=== PATIENT | male | born 1935 | race Caucasian/White ===

== ENCOUNTER 2016-07-19 14:47 | Outpatient (CLI) | payer MEDICARE, OTHER | END 2016-07-19 14:48 | disposition home or self-care (01) | DX: G47.33 Obstructive sleep apnea (adult) (pediatric) (principal) | CPT/HCPCS: 99214; G0463 ==

== ENCOUNTER 2016-07-20 14:29 | Outpatient (CLI) | payer MEDICARE, OTHER | END 2016-07-20 14:30 | disposition home or self-care (01) | DX: E03.9 Hypothyroidism, unspecified (principal) ==

== ENCOUNTER 2016-11-26 14:47 | Outpatient (CLI) | payer MEDICARE, OTHER ==
[2016-11-26 18:08] LABS: CALCIUM 9.3 mg/dL (8.5-10.3); POTASSIUM 3.9 mmol/L (3.5-5.0)
[2016-11-26 18:42] LABS: THYROID STIMULATING HORMONE 2.13 uIU/mL (0.34-5.60)
== END 2016-11-26 14:48 | disposition home or self-care (01) ==
LOC: LAB.F 14:47
PROVIDERS: ATTEND Family Medicine
DX: M12.811 Other specific arthropathies, not elsewhere classified, right shoulder (principal); E03.9 Hypothyroidism, unspecified; R03.0 Elevated blood-pressure reading, without diagnosis of hypertension
CPT/HCPCS: 36415; 80048; 84439; 84443; 84481

== ENCOUNTER 2016-12-07 14:25 | Outpatient (CLI) | payer MEDICARE, OTHER ==
--- NOTE | 2016-12-07 16:00 | MRI Report ---
EXAM: RIGHT SHOULDER MRI WITHOUT CONTRAST EXAM DATE: 12/07/2016 03:26 PM. CLINICAL HISTORY: Right shoulder arthritis for years. Prior stem cell injections. COMPARISON: X-ray 2010. TECHNIQUE: Multiplanar, multisequence T1-weighted and fluid-sensitive sequences of the shoulder witho ut contrast. Other: None. FINDINGS: Acromioclavicular Region: The acromion is type III. There is moderate acromioclavicular osteoarthriti s. Fluid in the subacromial bursa. Glenohumeral Region: There are large areas of denuded bone in the glenohumeral joint with accompanyin g osteophyte, subchondral cyst formation and subchondral edema consistent with severe osteoarthritis. There is superior subluxation of the humeral head. There is a moderate-sized joint effusion. Loose b odies are visible in the inferior aspect of the bicipital groove and the posterior capsule. There are foci of synovial thickening in the posterior capsule suggestive of synovitis. Bone Marrow: See above. Labrum: There is extensive labral fraying. Musculature/Rotator Cuff: There is moderate supraspinatus tendinosis with generalized thinning and fr aying of the entire tendon. Infraspinatus appears unremarkable. There is high-grade partial thickness tearing of the deep and superficial fibers of subscapularis with mild atrophy. Biceps Tendon: There is medial subluxation of the long head of biceps with partial thickness tearing. Other: The subcutaneous tissues are unremarkable. IMPRESSION: 1. Severe glenohumeral osteoarthritis with loose bodies. 2. Supraspinatus tendinosis with generalized thinning and fraying of the entire tendon. High-grade pa rtial thickness tear of the deep and superficial fibers of subscapularis with mild atrophy. 3. Moderate acromioclavicular osteoarthritis. Type III acromion. 4. Medial subluxation and partial thickness tearing of the long head of biceps. [facility] MUSCULOSKELETAL RADIOLOGY SECTION Referring Provider Line: [phone] SITE ID: [id number]
== END 2016-12-07 14:26 | disposition home or self-care (01) ==
LOC: DI 14:25
PROVIDERS: ATTEND Family Medicine
DX: M19.011 Primary osteoarthritis, right shoulder (principal); M24.011 Loose body in right shoulder; M75.101 Unspecified rotator cuff tear or rupture of right shoulder, not specified as traumatic; S46.111A Strain of muscle, fascia and tendon of long head of biceps, right arm, initial encounter

== ENCOUNTER 2017-02-01 11:15 | Outpatient (CLI) | payer MEDICARE, OTHER | END 2017-02-01 11:16 | disposition home or self-care (01) | LOC: SC 11:15 | PROVIDERS: ATTEND Nurse Practitioner Family | DX: G47.33 Obstructive sleep apnea (adult) (pediatric) (principal); R53.83 Other fatigue | CPT/HCPCS: 99215; G0463; 99212 ==

== ENCOUNTER 2017-04-04 14:46 | Outpatient (CLI) | payer MEDICARE, OTHER | END 2017-04-04 14:47 | disposition home or self-care (01) | LOC: SC 14:46 | PROVIDERS: ATTEND Nurse Practitioner Family | DX: G47.33 Obstructive sleep apnea (adult) (pediatric) (principal) | CPT/HCPCS: 99214; G0463; 99212 ==

== ENCOUNTER 2017-05-27 15:15 | Outpatient (CLI) | payer MEDICARE, OTHER ==
[2017-05-27 18:23] LABS: BASOPHILS % (AUTO) 0.8 %; EOSINOPHILS # (AUTO) 0.2 10^3/uL (0.0-0.7); EOSINOPHILS % (AUTO) 3.6 %; LYMPHOCYTES # (AUTO) 1.9 10^3/uL (1.5-3.5); LYMPHOCYTES % (AUTO) 37.3 %; MEAN CORPUSCULAR HEMOGLOBIN 32.7 pg (27.0-31.0); MEAN CORPUSCULAR HGB CONC 33.4 g/dL (32.0-36.0); MEAN CORPUSCULAR VOLUME 97.7 fL (80.0-94.0); MEAN PLATELET VOLUME 8.6 fL (7.4-11.4); MONOCYTES # (AUTO) 0.6 10^3/uL (0.0-1.0); NEUTROPHILS # (AUTO) 2.4 10^3/uL (1.5-6.6); NEUTROPHILS % (AUTO) 47.3 %; PLT - PLATELET COUNT 183 10^3/uL (130-450); RED BLOOD COUNT 4.28 10^6/uL (4.70-6.10); RED CELL DISTRIBUTION WIDTH 13.6 % (12.0-15.0); WHITE BLOOD COUNT 5.1 x10^3/uL (4.8-10.8)
[2017-05-27 18:40] LABS: ALBUMIN/GLOBULIN RATIO 1.5 (1.0-2.2); BILIRUBIN,TOTAL 0.6 mg/dL (0.2-1.0); CALCIUM 9.3 mg/dL (8.5-10.3); CREATININE 0.9 mg/dL (0.6-1.2); TOTAL PROTEIN 6.6 g/dL (6.7-8.2)
== END 2017-05-27 15:16 | disposition home or self-care (01) ==
LOC: LAB.F 15:15
PROVIDERS: ATTEND Physician Assistant Medical
DX: Z01.812 Encounter for preprocedural laboratory examination (principal); Z51.81 Encounter for therapeutic drug level monitoring; Z79.899 Other long term (current) drug therapy
CPT/HCPCS: 36415; 80053; 85025; 87081

== ENCOUNTER 2017-05-27 15:30 | Outpatient (CLI) | payer MEDICARE, OTHER | END 2017-05-27 15:31 | disposition home or self-care (01) | LOC: LAB.R 15:30 | PROVIDERS: ATTEND Physician Assistant Medical | DX: Z01.812 Encounter for preprocedural laboratory examination (principal) | CPT/HCPCS: 87081 ==

== ENCOUNTER 2017-05-31 14:37 | Outpatient (CLI) | payer MEDICARE, OTHER ==
--- NOTE | 2017-06-02 11:08 | XRAY Report ---
DATE OF SERVICE: 05/31/2017 TWO VIEW CHEST: 05/31/2017 COMPARISON: Chest CT 10/18/2014. INDICATION: Tobacco user. Preop exam. TECHNIQUE: Frontal and lateral chest views. FINDINGS: There is streaky opacity of the lingula which appears to be a stable finding and likely represents scar and/or atelectasis. No focal consolidation. No pneumothorax or pleural effusion. Mediastinum appears unremarkable, apart from tortuosity of the thoracic aorta. IMPRESSION: No evidence of acute thoracic process. TD: 05/31/2017 22:47 MTDD
== END 2017-05-31 14:38 | disposition home or self-care (01) ==
LOC: DI 14:37
PROVIDERS: ATTEND Physician Assistant Medical
DX: Z01.818 Encounter for other preprocedural examination (principal); Z72.0 Tobacco use
CPT/HCPCS: 71046

== ENCOUNTER 2018-01-19 11:19 | Outpatient (CLI) | payer MEDICARE, OTHER | END 2018-01-19 11:20 | disposition home or self-care (01) | LOC: LAB.F 11:19 | PROVIDERS: ATTEND Physician Assistant Medical | DX: F34.1 Dysthymic disorder (principal); E03.9 Hypothyroidism, unspecified | CPT/HCPCS: 36415; 84443; 84481 ==

== ENCOUNTER 2018-05-09 14:29 | Outpatient (CLI) | payer MEDICARE, OTHER ==
[2018-05-09 18:09] LABS: BASOPHILS % (AUTO) 0.4 %; EOSINOPHILS # (AUTO) 0.1 10^3/uL (0.0-0.7); EOSINOPHILS % (AUTO) 2.3 %; HGB - HEMOGLOBIN 12.7 g/dL (14.0-18.0); LYMPHOCYTES # (AUTO) 1.6 10^3/uL (1.5-3.5); LYMPHOCYTES % (AUTO) 30.6 %; MEAN CORPUSCULAR HEMOGLOBIN 32.7 pg (27.0-31.0); MEAN CORPUSCULAR HGB CONC 33.5 g/dL (32.0-36.0); MEAN CORPUSCULAR VOLUME 97.7 fL (80.0-94.0); MONOCYTES # (AUTO) 0.6 10^3/uL (0.0-1.0); MONOCYTES % (AUTO) 10.5 %; NEUTROPHILS % (AUTO) 56.2 %; PLT - PLATELET COUNT 199 10^3/uL (130-450); RED BLOOD COUNT 3.89 10^6/uL (4.70-6.10); RED CELL DISTRIBUTION WIDTH 13.4 % (12.0-15.0); WHITE BLOOD COUNT 5.3 x10^3/uL (4.8-10.8)
[2018-05-09 18:25] LABS: ALBUMIN/GLOBULIN RATIO 1.7 (1.0-2.2); BILIRUBIN,TOTAL 0.7 mg/dL (0.2-1.0); TOTAL PROTEIN 6.4 g/dL (6.7-8.2)
== END 2018-05-09 14:30 | disposition home or self-care (01) ==
LOC: LAB.F 14:29
PROVIDERS: ATTEND Physician Assistant Medical
DX: Z51.81 Encounter for therapeutic drug level monitoring (principal); Z79.899 Other long term (current) drug therapy; E03.9 Hypothyroidism, unspecified
CPT/HCPCS: 36415; 80053; 84443; 85025

== ENCOUNTER 2018-05-15 13:48 | Outpatient (CLI) | payer MEDICARE, OTHER | END 2018-05-15 13:49 | disposition home or self-care (01) | LOC: SC 13:48 | PROVIDERS: ATTEND Nurse Practitioner Family | DX: G47.33 Obstructive sleep apnea (adult) (pediatric) (principal) | CPT/HCPCS: 99214; G0463; 99212 ==

== ENCOUNTER 2018-08-02 15:20 | Outpatient (CLI) | payer MEDICARE, OTHER ==
[2018-08-02 17:41] LABS: BASOPHILS # (AUTO) 0.1 10^3/uL (0.0-0.1); BASOPHILS % (AUTO) 1.1 %; EOSINOPHILS # (AUTO) 0.1 10^3/uL (0.0-0.7); HGB - HEMOGLOBIN 13.6 g/dL (14.0-18.0); LYMPHOCYTES % (AUTO) 37.9 %; MEAN CORPUSCULAR HEMOGLOBIN 31.9 pg (27.0-31.0); MEAN CORPUSCULAR HGB CONC 33.2 g/dL (32.0-36.0); MEAN CORPUSCULAR VOLUME 96.1 fL (80.0-94.0); MEAN PLATELET VOLUME 8.7 fL (7.4-11.4); MONOCYTES # (AUTO) 0.5 10^3/uL (0.0-1.0); MONOCYTES % (AUTO) 10.4 %; NEUTROPHILS # (AUTO) 2.6 10^3/uL (1.5-6.6); NEUTROPHILS % (AUTO) 49.6 %; PLT - PLATELET COUNT 195 10^3/uL (130-450); RED BLOOD COUNT 4.27 10^6/uL (4.70-6.10); WHITE BLOOD COUNT 5.2 x10^3/uL (4.8-10.8)
== END 2018-08-02 15:21 | disposition home or self-care (01) ==
LOC: LAB.F 15:20
PROVIDERS: ATTEND Physician Assistant Medical
DX: D64.9 Anemia, unspecified (principal)
CPT/HCPCS: 36415; 85025

== ENCOUNTER 2018-08-15 13:56 | Outpatient (CLI) | payer MEDICARE, OTHER | END 2018-08-15 13:57 | disposition home or self-care (01) | LOC: LAB.F 13:56 | PROVIDERS: ATTEND Physician Assistant Medical | DX: E03.9 Hypothyroidism, unspecified (principal) | CPT/HCPCS: 36415; 84439; 84481; 86800 ==

== ENCOUNTER 2018-08-31 15:09 | Outpatient (CLI) | payer MEDICARE, OTHER ==
--- NOTE | 2018-09-01 08:54 | XRAY Report ---
Reason: ANKLE JOINT PAIN,LEFT Procedure Date: 08/31/2018 Accession Number: [id number] / [id number] Procedure: XR - Ankle 3 View LT CPT Code: FULL RESULT: EXAM: LEFT ANKLE RADIOGRAPHY EXAM DATE: 08/31/2018 03:25 PM. CLINICAL HISTORY: Ankle joint pain, left. COMPARISON: None. TECHNIQUE: 3 views. FINDINGS: Bones: Normal. No fractures or bone lesions. Joints: Normal. No effusion. No subluxations. The ankle mortise is normally aligned. Soft Tissues: Mild bimalleolar soft tissue swelling, slightly more so medially. IMPRESSION: Bimalleolar soft tissue swelling but no underlying fracture or malalignment appreciated. [facility]
== END 2018-08-31 15:10 | disposition home or self-care (01) ==
LOC: DI 15:09
PROVIDERS: ATTEND Registered Nurse
DX: M25.572 Pain in left ankle and joints of left foot (principal); R22.42 Localized swelling, mass and lump, left lower limb

== ENCOUNTER 2019-04-04 13:52 | Outpatient (CLI) | payer MEDICARE, OTHER ==
[2019-04-04 17:52] LABS: THYROID STIMULATING HORMONE 3.34 uIU/mL (0.34-5.60)
[2019-04-04 17:54] LABS: FREE T4 (FREE THYROXINE) 0.62 ng/dL (0.58-1.64)
== END 2019-04-04 13:53 | disposition home or self-care (01) ==
LOC: LAB.S 13:52
PROVIDERS: ATTEND Physician Assistant Medical
DX: E03.9 Hypothyroidism, unspecified (principal)
CPT/HCPCS: 36415; 84439; 84443; 84481

== ENCOUNTER 2019-06-07 13:19 | Outpatient (CLI) | payer MEDICARE, OTHER ==
[2019-06-07 14:17] VITALS: BP 130/70
--- NOTE | 2019-06-07 14:17 | SLEEP CARE CONSULTATION ---
Information from patient questionnaire entered by Lorie Dan. I have reviewed and concur with the information entered by Lorie Dan. This document represents the service I personally performed and the decisions made by me, Risa Cabrera, RN, MSN, MANAGER DEVELOPMENT. History of Present Illness Previous diagnosis: Severe, Obstructive Sleep Apnea-Hypopnea Syndrome AHI: 38.7 Reason for follow up: annual (last seen 2018) Equipment type: CPAP Equipment obtained from: [employer] Mask style: Nasal Mask brand: Respironics Backup mask available: No (keep current mask when replaced. ) Last cushion change: 1 month ago CPAP Compliance Data - Data Reviewed with Patient Average duration of nightly device use: 8 hours Compliance rate %: 100 (until 12/27/2018) Current pressure setting (cmH2O): 14-16 Humidity settin Heated hose settin Average residual AHI: 2.9 Subjective Patient concerns: reports: mask leak noise (mask dislodges occasionally and can be nightly ), nasal congestion (when awakens clears with blowing nose, does not interfer with CPAP ), dry mouth, nose, throat. denies: aerophagia, mask discomfort, air blowing in eyes, condensation in mask/hose, epistaxis Observed to snore while using device: No (sleeps alone ) Current pressure setting perceived as: comfortable (mild to moderate / uses Biotene in mornign.) On therapy, patient: reports: sleeping better, awakening more refreshed, being more awake and alert during the day, more rested overall. denies: drowsiness while driving Initial [place] Sleepiness Scale score: 11 Current [place] Sleepiness Scale score: 9 Allergies and Home Medications Known drug allergies: Yes Home medication list reviewed: Yes (same as last annual visit) Allergy and home medication list: Vesicare 10mg daily [place] thyroid 30mg daily 30 minutes before breakfast Testosterone 150mg / 0.5ml1 - 1/2 ml topically daily Ventolin inhaler every 4 hours prn B12 supplement Review of Systems Review of systems same as previous: Yes Physical Exam Blood Pressure: 130/70 Cuff size: long Heart Rate: 52 O2 Saturation: 97 Weight: 192 lb Weight change since last visit: gaioned 2 Impression and Plan 1. Obstructive Sleep Apnea-Hypopnea Syndrome, severe, with good treatment compliance and good apnea control until November 2018 when data stopped recording on compliance card. The cloud access is unavailable. Patient advised to bring back his CPAP and compliance card next week so can download current CPAP use with rationale discussed why to bring all equipment. He was instructed how the card can become dislodged while changing the filter and instructed how to ensure card is replaced properly. On CPAP therapy, the patient has better sleep quality and is more rested overall. Oral dryness can be reduced with increasing the CPAP humidity as shown on sample device and the heated hose can be increased if condensation. Printed instructions given with rationale why to change settings. He is also to try the Biotene prior to bedtime and use of CPAP rather than when awakens with rationale discussed. He can also try Smart mouth rinse as an alternative to Biotene. To prevent mask dislodging during sleep, I ordered head gear adaptor for his current mask. Questions regarding supply replacement answered. copy of supply replacement schedule given. Patient's apnea severity and rationale for treatment to reduce apnea, improve sleep quality and reduce cardiovascular and cerebrovascular events was reviewed. I also reviewed the benefit of consistent device use of CPAP for his depression. * Continue CPAP pressure at 14-16 cmH2O * Adjust humidity * headgear adaptor * Notify me if snoring with mask or feeling that the pressure is too much or too little * Attempt to lose weight * Call this office if any problems using CPAP * Return for follow up determined by compliance report of current use , or sooner if concerns arise * An addendum will be added to chart note when current compliance report received. Time Spent with Patient (minutes): 30 I spent 100% of this visit face to face with the patient with greater than 50% of this was spent time counseling the patient and coordination of care.
== END 2019-06-07 13:20 | disposition home or self-care (01) ==
LOC: SC 13:19
PROVIDERS: ATTEND Nurse Practitioner Family
DX: G47.33 Obstructive sleep apnea (adult) (pediatric) (principal)
CPT/HCPCS: 99214; G0463; 99212

== ENCOUNTER 2020-02-25 11:12 | Outpatient (CLI) | payer MEDICARE, OTHER ==
[2020-02-25 15:21] LABS: BASOPHILS % (AUTO) 0.8 %; EOSINOPHILS # (AUTO) 0.1 10^3/uL (0.0-0.7); HGB - HEMOGLOBIN 13.4 g/dL (14.0-18.0); LYMPHOCYTES % (AUTO) 38.2 %; MEAN CORPUSCULAR HEMOGLOBIN 31.9 pg (27.0-31.0); MEAN CORPUSCULAR HGB CONC 32.9 g/dL (32.0-36.0); MEAN CORPUSCULAR VOLUME 96.9 fL (80.0-94.0); MEAN PLATELET VOLUME 10.9 fL (7.4-11.4); MONOCYTES # (AUTO) 0.6 10^3/uL (0.0-1.0); MONOCYTES % (AUTO) 11.5 %; NEUTROPHILS # (AUTO) 2.5 10^3/uL (1.5-6.6); NEUTROPHILS % (AUTO) 48.3 %; PLT - PLATELET COUNT 208 10^3/uL (130-450); RED CELL DISTRIBUTION WIDTH 13.8 % (12.0-15.0); WHITE BLOOD COUNT 5.1 x10^3/uL (4.8-10.8)
[2020-02-25 15:42] LABS: ALBUMIN 3.9 g/dL (3.2-5.5); ALBUMIN/GLOBULIN RATIO 1.5 (1.0-2.2); BILIRUBIN,TOTAL 0.5 mg/dL (0.2-1.0); CALCIUM 9.3 mg/dL (8.5-10.3); CREATININE 1.1 mg/dL (0.6-1.2); TOTAL PROTEIN 6.5 g/dL (6.7-8.2)
[2020-02-25 15:48] LABS: FERRITIN 262.8 ng/mL (23.9-336.2)
== END 2020-02-25 11:13 | disposition home or self-care (01) ==
LOC: LAB.S 11:12
PROVIDERS: ATTEND Internal Medicine
DX: Z00.00 Encounter for general adult medical examination without abnormal findings (principal); E53.8 Deficiency of other specified B group vitamins; D64.9 Anemia, unspecified; R97.20 Elevated prostate specific antigen [PSA]; E29.1 Testicular hypofunction
CPT/HCPCS: 36415; 80053; 81599; 82607; 82728; 83540; 84153; 84402; 84403; 84466; 85025

== ENCOUNTER 2020-07-09 13:52 | Outpatient (CLI) | payer MEDICARE, OTHER ==
--- NOTE | 2020-07-09 14:17 | SLEEP CARE CONSULTATION ---
Information from patient questionnaire entered by Jayson Roca. I have reviewed and concur with the information entered by Jayson Roca. This document represents the service I personally performed and the decisions made by me, Martha Perkins ARNP. History of Present Illness Service Date and Time: 07/09/2020 1352 Previous diagnosis: Severe, Obstructive Sleep Apnea-Hypopnea Syndrome AHI: 38.7 Reason for follow up: annual (Last seen 05/2019) Equipment type: CPAP Equipment obtained from: Other ([employer]; getting supplies as needed) Mask style: Nasal Backup mask available: Yes (old mask) Last cushion change: 10 days ago Year and Where: 2015 [facility] Type of Sleep Study: Polysomnography HPI additional information: GIORGIO RICE was diagnosed to have severe, AHI 38.7, obstructive sleep apnea-hypopnea syndrome and returned today for CPAP therapy annual follow-up. CPAP Compliance Data - Data Reviewed with Patient Average duration of nightly device use: 7 h 43 min Compliance rate %: 100 Current pressure setting (cmH2O): 14-16 Humidity settin Average residual AHI: 4.0 Average large leak: 26 min 21 sec Subjective Patient concerns: denies: aerophagia, mask discomfort, air blowing in eyes, mask leak noise, condensation in mask/hose, nasal congestion, dry mouth, nose, throat, epistaxis, other Observed to snore while using device: No Current pressure setting perceived as: comfortable On therapy, patient: reports: sleeping better, awakening more refreshed, being more awake and alert during the day, more rested overall. denies: drowsiness while driving Initial [place] Sleepiness Scale score: 11 (in 2016) Current [place] Sleepiness Scale score: 5 Allergies and Home Medications Drug allergies reviewed: Yes (NKDA) Home medication list reviewed: Yes (no changes) Review of Systems Review of systems same as previous: Yes (no changes) Physical Exam Heart Rate: 65 O2 Saturation: 94 Height: 5 ft 6 in Weight: 188 lb Body Mass Index: 30.3 BMI Classification: Obese Impression and Plan 1. Obstructive Sleep Apnea-Hypopnea Syndrome, severe, with excellent treatment compliance and good apnea control. On CPAP therapy, the patient has better sleep quality and is more rested overall. He states he would be scared to sleep without it. He has no complaints for the mask use or discomfort. Patient's apnea severity and rationale for treatment to reduce apnea, improve sleep quality and reduce cardiovascular and cerebrovascular events was reviewed. I also reviewed the benefit of consistent device use of CPAP for depression. * Continue auto CPAP pressure at 14-16 cmH2O * Notify me if snoring with mask or feeling that the pressure is too much or too little * Attempt to lose weight * Call this office if any problems using CPAP * Return for follow up in 1 year, or sooner if concerns arise Counseling Topics: Spare mask, Weight loss health impact Visit Type: In Office Time Spent with Patient (minutes): 18 Provider Statement: I spent 100% of the Face to Face Visit with the patient with greater than 50% spent counseling the patient and coordination of care.
== END 2020-07-09 13:53 | disposition home or self-care (01) ==
LOC: SC 13:52
PROVIDERS: ATTEND Nurse Practitioner Family
DX: G47.33 Obstructive sleep apnea (adult) (pediatric) (principal); E66.9 Obesity, unspecified; Z68.30 Body mass index [BMI] 30.0-30.9, adult
CPT/HCPCS: 99212; G0463

== ENCOUNTER 2020-10-14 10:23 | Outpatient (CLI) | payer MEDICARE, OTHER ==
[2020-10-14 14:56] LABS: BASOPHILS % (AUTO) 0.8 %; EOSINOPHILS # (AUTO) 0.1 10^3/uL (0.0-0.7); EOSINOPHILS % (AUTO) 1.1 %; HCT - HEMATOCRIT 39.4 % (42.0-52.0); HGB - HEMOGLOBIN 13.1 g/dL (14.0-18.0); LYMPHOCYTES # (AUTO) 1.6 10^3/uL (1.5-3.5); LYMPHOCYTES % (AUTO) 32.8 %; MEAN CORPUSCULAR HEMOGLOBIN 32.5 pg (27.0-31.0); MEAN CORPUSCULAR HGB CONC 33.2 g/dL (32.0-36.0); MEAN CORPUSCULAR VOLUME 97.8 fL (80.0-94.0); MONOCYTES # (AUTO) 0.5 10^3/uL (0.0-1.0); MONOCYTES % (AUTO) 11.1 %; NEUTROPHILS # (AUTO) 2.6 10^3/uL (1.5-6.6); NEUTROPHILS % (AUTO) 53.6 %; PLT - PLATELET COUNT 220 10^3/uL (130-450); RED BLOOD COUNT 4.03 10^6/uL (4.70-6.10); RED CELL DISTRIBUTION WIDTH 13.6 % (12.0-15.0); WHITE BLOOD COUNT 4.8 x10^3/uL (4.8-10.8)
[2020-10-14 15:32] LABS: ALBUMIN/GLOBULIN RATIO 1.7 (1.0-2.2); ALKALINE PHOSPHATASE 30 IU/L (42-121); ALT ALANINE AMINOTRANSFERASE 21 IU/L (10-60); AST ASPARTATE AMINOTRANSFERASE 23 IU/L (10-42); BILIRUBIN,TOTAL 1.2 mg/dL (0.2-1.0); BUN - BLOOD UREA NITROGEN 23 mg/dL (6-20); CALCIUM 9.2 mg/dL (8.5-10.3); CARBON DIOXIDE - CO2 29 mmol/L (21-32); CHLORIDE 104 mmol/L (101-111); CHOL/HDL RATIO 3.3 (<5.0); CHOLESTEROL 240 mg/dL; GFR - MDRD 71 (>89); GLUCOSE 101 mg/dL (70-100); HDL CHOLESTEROL 73 mg/dL; LDL CHOLESTEROL,CALCULATED 152 mg/dL; LDL/HDL RATIO 2.1 (<3.6); SODIUM 141 mmol/L (135-145); TOTAL PROTEIN 6.4 g/dL (6.7-8.2); TRIGLYCERIDES 76 mg/dL; VLDL CHOLESTEROL 15 mg/dL
== END 2020-10-14 10:24 | disposition home or self-care (01) ==
LOC: LAB.S 10:23
PROVIDERS: ATTEND Internal Medicine
DX: R03.0 Elevated blood-pressure reading, without diagnosis of hypertension (principal); D64.9 Anemia, unspecified; E29.1 Testicular hypofunction; R97.20 Elevated prostate specific antigen [PSA]
CPT/HCPCS: 36415; 80053; 80061; 83721; 84153; 84403; 85025

== ENCOUNTER 2021-04-15 08:00 | Outpatient (CLI) | payer MEDICARE, OTHER ==
--- NOTE | 2021-04-15 17:36 | XRAY Report ---
PROCEDURE: Wrist 3 View LT INDICATIONS: MASS OF BODY STRUCTURE TECHNIQUE: 3 views of the wrist were acquired. COMPARISON: None FINDINGS: Bones: No fractures or dislocations. No suspicious bony lesions. Subcortical cystic changes presen t in the triquetrum and at the first metacarpal base. No protruding osseous lesions. Soft tissues: No suspicious soft tissue calcifications. Mild soft tissue thickening of the ulnar st yloid no discrete calcifications. IMPRESSION: 1. No suspicious bony lesion. 2. Subcortical cystic changes, likely reflecting arthritis. 3. Soft tissue thickening over the ulnar styloid without calcified abnormality. Consider ultrasound o r MRI for further evaluation of the soft tissues. Reviewed by: Peggy River MD on 04/15/2021 5:35 PM PST Approved by: Peggy River MD on 04/15/2021 5:35 PM PST Station ID: [id number]
== END 2021-04-15 23:59 | disposition home or self-care (01) ==
LOC: DI.S 08:00
PROVIDERS: ATTEND Emergency Medicine
DX: R22.32 Localized swelling, mass and lump, left upper limb (principal); M85.632 Other cyst of bone, left forearm; E03.9 Hypothyroidism, unspecified; E78.5 Hyperlipidemia, unspecified; Z79.899 Other long term (current) drug therapy
CPT/HCPCS: 36415; 80053; 80061; 83721; 84443; 85025

== ENCOUNTER 2021-04-15 14:02 | Outpatient (CLI) | payer MEDICARE, OTHER ==
[2021-04-15 19:51] LABS: BASOPHILS # (AUTO) 0.1 10^3/uL (0.0-0.1); BASOPHILS % (AUTO) 0.9 %; EOSINOPHILS # (AUTO) 0.1 10^3/uL (0.0-0.7); EOSINOPHILS % (AUTO) 1.8 %; HCT - HEMATOCRIT 41.3 % (42.0-52.0); HGB - HEMOGLOBIN 13.4 g/dL (14.0-18.0); LYMPHOCYTES # (AUTO) 2.8 10^3/uL (1.5-3.5); LYMPHOCYTES % (AUTO) 41.6 %; MEAN CORPUSCULAR HEMOGLOBIN 32.1 pg (27.0-31.0); MEAN CORPUSCULAR HGB CONC 32.4 g/dL (32.0-36.0); MEAN CORPUSCULAR VOLUME 98.8 fL (80.0-94.0); MEAN PLATELET VOLUME 10.9 fL (7.4-11.4); MONOCYTES # (AUTO) 0.7 10^3/uL (0.0-1.0); MONOCYTES % (AUTO) 9.8 %; NEUTROPHILS % (AUTO) 45.7 %; PLT - PLATELET COUNT 206 10^3/uL (130-450); RED BLOOD COUNT 4.18 10^6/uL (4.70-6.10); RED CELL DISTRIBUTION WIDTH 13.8 % (12.0-15.0); WHITE BLOOD COUNT 6.6 x10^3/uL (4.8-10.8)
[2021-04-15 20:09] LABS: ALBUMIN 4.4 g/dL (3.2-5.5); ALBUMIN/GLOBULIN RATIO 2.2 (1.0-2.2); ALKALINE PHOSPHATASE 39 IU/L (42-121); ALT ALANINE AMINOTRANSFERASE 20 IU/L (10-60); AST ASPARTATE AMINOTRANSFERASE 22 IU/L (10-42); BILIRUBIN,TOTAL 0.5 mg/dL (0.2-1.0); BUN - BLOOD UREA NITROGEN 29 mg/dL (6-20); CALCIUM 9.1 mg/dL (8.5-10.3); CARBON DIOXIDE - CO2 27 mmol/L (21-32); CHLORIDE 103 mmol/L (101-111); CHOL/HDL RATIO 3.6 (<5.0); CHOLESTEROL 232 mg/dL; CREATININE 1.1 mg/dL (0.6-1.2); GFR - MDRD 64 (>89); GLUCOSE 105 mg/dL (70-100); HDL CHOLESTEROL 65 mg/dL; LDL CHOLESTEROL,CALCULATED 151 mg/dL; LDL/HDL RATIO 2.3 (<3.6); SODIUM 140 mmol/L (135-145); TOTAL PROTEIN 6.4 g/dL (6.7-8.2); TRIGLYCERIDES 80 mg/dL; VLDL CHOLESTEROL 16 mg/dL
[2021-04-15 20:18] LABS: THYROID STIMULATING HORMONE 2.49 uIU/mL (0.34-5.60)
== END 2021-04-15 14:03 | disposition home or self-care (01) ==
LOC: LAB.S 14:02
PROVIDERS: ATTEND Internal Medicine
DX: E03.9 Hypothyroidism, unspecified (principal); Z79.899 Other long term (current) drug therapy; E78.5 Hyperlipidemia, unspecified
CPT/HCPCS: 36415; 80053; 80061; 83721; 84443; 85025

== ENCOUNTER 2021-09-03 12:39 | Outpatient (CLI) | payer MEDICARE, OTHER ==
[2021-09-03 13:40] VITALS: BP 124/77
--- NOTE | 2021-09-03 13:40 | SLEEP CARE CONSULTATION ---
Information from patient questionnaire entered by Natalie Oliva MA. I have reviewed and concur with the information entered by Natalie Oliva MA. This document represents the service I personally performed and the decisions made by , Martha Perkins ARNP. History of Present Illness Service Date and Time: 09/03/2021 1239 Previous diagnosis: Severe, Obstructive Sleep Apnea-Hypopnea Syndrome AHI: 38.7 Reason for follow up: annual (LAST SEEN 06/2020, FREDDIE, ) Equipment type: CPAP Equipment obtained from: Other ([employer]; getting supplies as needed) Mask style: Nasal Backup mask available: Yes (old mask) Last cushion change: within last week Prior sleep studies: Yes Year and Where: 2015 [facility] Type of Sleep Study: Polysomnography HPI additional information: GIORGIO RICE was diagnosed to have severe, AHI 38.7, obstructive sleep apnea-hypopnea syndrome and returned today for CPAP therapy annual follow-up. Sleep Study - Results Type of Sleep Study: Polysomnography Year and Where: 2015 [facility] CPAP Compliance Data - Data Reviewed with Patient Average duration of nightly device use: 7 HOURS 59 MINUTES Compliance rate %: 100 Current pressure setting (cmH2O): 14-16 Humidity settin Heated hose setting: OFF Average residual AHI: 4.1 Average large leak: 4 MINUTES 25 SECONDS Subjective Patient concerns: reports: dry mouth, nose, throat. denies: aerophagia, mask discomfort, air blowing in eyes, mask leak noise, condensation in mask/hose, nasal congestion, epistaxis, other Observed to snore while using device: No Current pressure setting perceived as: too high On therapy, patient: reports: sleeping better, awakening more refreshed, being more awake and alert during the day, more rested overall. denies: drowsiness while driving Initial [place] Sleepiness Scale score: 11 (in 2016) Current [place] Sleepiness Scale score: 4 Allergies and Home Medications Home medication list reviewed: Yes (no changes) Allergy and home medication list: Allergies No Known Drug Allergies Allergy (Verified 08/04/15 01:15) Review of Systems Review of systems same as previous: Yes Physical Exam Vital signs obtained and entered by: Anuj TORRES Blood Pressure: 124/77 (right) Cuff size: wrist Heart Rate: 64 O2 Saturation: 96 Height: 5 ft 6 in Weight: 189 lb Body Mass Index: 30.4 BMI Classification: Obese Impression and Plan 1. Obstructive Sleep Apnea-Hypopnea Syndrome, severe, with excellent treatment compliance and good apnea control. On CPAP therapy, the patient has better sleep quality and is more rested overall. He has a Dreamstation that was last updated in 12/2015. I informed the patient that [employer] has a recall on several devices like the patients machine. Patient denies any black particles seen in machine or hoses, any unusual odors coming from device. Patient has not experienced any physical symptoms such as upper airway irritation, headache, skin or eye irritation, asthma, nausea/vomiting, difficulty breathing or chest pain. If patient is not able to sleep due to waking up choking, gasping for air or other respiratory distress that they may decide to continue using it until it is either replaced or repaired. Since the patients current machine is at least 5 years old, the patient is opting to update their device with a device that is not on the recall. Thus, the CPAP will be updated. The new CPAPs also have a better humidity system which could assist control of patients dryness symptoms. A DWO prescription will be made. Compliance guidelines for new device and follow up discussed. Patient voiced understanding and agreement with plan. Patient's apnea severity and rationale for treatment to reduce apnea, improve sleep quality and reduce cardiovascular and cerebrovascular events was reviewed. I also reviewed the benefit of consistent device use of CPAP for depression. Patient had questions about the Inspire implantable device for sleep apnea. I spent some time discussing this modality. Patient does not want to do anything about this at this time. * Continue auto CPAP pressure at 14-16 cmH2O * Try a Dreamwear full face mask * Update CPAP machine * Notify me if snoring with mask or feeling that the pressure is too much or too little * Attempt to lose weight * Call this office if any problems using CPAP * Return for follow up in one month after obtaining new device, or sooner if concerns arise Counseling Topics: Spare mask, Weight loss health impact Visit Type: In Office Time Spent with Patient (minutes): 29 Provider Statement: I spent 100% of the Face to Face Visit with the patient with greater than 50% spent counseling the patient and coordination of care.
== END 2021-09-03 12:40 | disposition home or self-care (01) ==
LOC: SC 12:39
PROVIDERS: ATTEND Nurse Practitioner Family
DX: G47.33 Obstructive sleep apnea (adult) (pediatric) (principal); E66.9 Obesity, unspecified; Z68.30 Body mass index [BMI] 30.0-30.9, adult
CPT/HCPCS: 99213; G0463; 99212

== ENCOUNTER 2021-10-04 12:17 | Emergency (ER) | payer MEDICARE, OTHER ==
[2021-10-04 12:24] VITALS: BP 151/90
[2021-10-04] MEDS ORDERED: AMOX/CLAV 875 MG/125 MG TABLET PO STA (12:40)
--- NOTE | 2021-10-04 12:42 | ED Physician Documentation ---
PD HPI HEENT - Stated complaint Stated Complaint: CONGESTION - Chief complaint Chief Complaint: Heent - History obtained from History obtained from: Patient - Additional information Additional information: This is a relatively healthy 86-year-old gentleman who has DALE with CPAP who complains of 2 weeks of both nasal and chest congestion. Said particularly bad at night with wheezing and shortness of breath. Cough is productive at times and dry at other times. He denies fevers. Review of Systems Constitutional: denies: Fever, Chills Ears: denies: Ear pain Nose: reports: Rhinorrhea / runny nose, Congestion Throat: denies: Sore throat Respiratory: reports: Dyspnea, Cough PD PAST MEDICAL HISTORY - Past Medical History GI: GERD - Past Surgical History Past Surgical History: No - Present Medications Home Medications: Ambulatory Orders Medication Instructions Recorded Confirmed Cephalexin [Keflex] 500 mg PO Q6H #28 capsule 08/04/15 Citalopram [CeleXA] 10 mg PO DAILY 08/04/15 08/04/15 Loratadine [Claritin] 10 mg PO DAILY PRN #20 tab.rapdis 08/04/15 Mupirocin Calcium [Bactroban] 1 applic TP TID #1 tub 08/04/15 Omeprazole 20 mg PO DAILY 08/04/15 08/04/15 Solifenacin Succinate [Vesicare] 10 mg PO DAILY 08/04/15 08/04/15 Albuterol Sulf [Ventolin Hfa 1 - 2 puffs INH Q4HR PRN #1 inhaler 10/04/21 Inhaler] Amox/Clav 875/125 [Augmentin] 1 each PO Q12H #20 tablet 10/04/21 guaiFENesin/CODEINE [Robitussin AC] 10 ml PO Q6H PRN #150 ml 10/04/21 - Allergies Allergies/Adverse Reactions: Allergies Allergy/AdvReac Type Severity Reaction Status Date / Time No Known Drug Allergies Allergy Verified 10/04/21 12:24 - Social History Does the pt smoke?: No Smoking Status: Never smoker PD ED PE NORMAL - Vitals Vital signs reviewed: Yes - General General: Alert and oriented X 3, No acute distress - HEENT HEENT: Ears normal, Moist mucous membranes, Pharynx benign - Neck Neck: Supple, no meningeal sign, No bony TTP - Cardiac Cardiac: RRR, No murmur - Respiratory Respiratory: No respiratory distress, Clear bilaterally - Abdomen Abdomen: Normal bowel sounds, Soft, Non tender - Back Back: No CVA TTP, No spinal TTP - Derm Derm: Normal color, Warm and dry - Extremities Extremities: No edema, No calf tenderness / cord - Neuro Neuro: Alert and oriented X 3, Normal speech Results - Vitals Vitals: Vital Signs - 24 hr 10/04/21 12:22 Temperature 36.1 C L Heart Rate 75 Respiratory 14 Rate Blood Pressure 151/90 H O2 Saturation 95 Oxygen O2 Source Room air PD MEDICAL DECISION MAKING - ED course ED course: Given the time course and age, reasonable to trial antibiotics. This is despite the relatively unimpressive examination. We discussed COVID testing, he does not seem interested. Given the time course, no specific therapeutics would be offered anyway. Departure - Departure Disposition: 01 Home, Self Care Clinical Impression: Sinusitis Condition: Good Record reviewed to determine appropriate education?: Yes Instructions: ED Sinusitis Abx Tx Prescriptions: Albuterol Sulf [Ventolin Hfa Inhaler] 1 - 2 puffs INH Q4HR PRN #1 inhaler PRN Reason: Shortness Of Air/Wheezing Amox/Clav 875/125 [Augmentin] 1 each PO Q12H #20 tablet guaiFENesin/CODEINE [Robitussin AC] 10 ml PO Q6H PRN #150 ml PRN Reason: cough or sleep Print Language: Niuean Comments: I sent your prescription electronically to [facility] in [place]. Return if worse, follow-up with your doctor in about a week if not improving.
== END 2021-10-04 12:57 | disposition home or self-care (01) ==
LOC: ED 12:17
DX: J32.9 Chronic sinusitis, unspecified (principal)
CPT/HCPCS: 99282; 99283; A9270

== ENCOUNTER 2021-12-22 13:07 | Outpatient (CLI) | payer MEDICARE, OTHER ==
--- NOTE | 2021-12-22 13:45 | SLEEP CARE CONSULTATION ---
Information from patient questionnaire entered by Natalie Oliva MA. I have reviewed and concur with the information entered by Natalie Oliva MA. This document represents the service I personally performed and the decisions made by , Martha Perkins ARNP. History of Present Illness Service Date and Time: 12/22/2021 1307 Previous diagnosis: Severe, Obstructive Sleep Apnea-Hypopnea Syndrome AHI: 38.7 Reason for follow up: first compliance (RESRENAN JHAVERI 11/16/2021,), first compliance after device update Equipment type: CPAP Equipment obtained from: Other ([employer]; getting supplies as needed) Mask style: Nasal Backup mask available: Yes (old mask) Prior sleep studies: Yes Year and Where: 2015 [facility] Type of Sleep Study: Polysomnography HPI additional information: GIORGIO RICE was diagnosed to have severe, AHI 38.7, obstructive sleep apnea-hypopnea syndrome and returned today for CPAP therapy first compliance after updating device follow-up. Sleep Study - Results Type of Sleep Study: Polysomnography Prior sleep studies: Yes Year and Where: 2015 [facility] CPAP Compliance Data - Data Reviewed with Patient Average duration of nightly device use: 7 HOURS 44 MINUTES Compliance rate %: 100 (11/21/21-12/20/21; days) Current pressure setting (cmH2O): 14-16 Average residual AHI: 4.4 Central apnea: 3.3 Obstructive apnea: .3 Hypopnea: .3 Average large leak: 11.1 Subjective Patient concerns: reports: dry mouth, nose, throat. denies: aerophagia, mask discomfort, air blowing in eyes, mask leak noise, condensation in mask/hose, nasal congestion, epistaxis, other Observed to snore while using device: No Current pressure setting perceived as: comfortable On therapy, patient: reports: sleeping better, awakening more refreshed, being more awake and alert during the day, more rested overall. denies: drowsiness while driving Initial [place] Sleepiness Scale score: 11 (in 2015) Current [place] Sleepiness Scale score: 3 (12/22/2021) Allergies and Home Medications Known drug allergies: No Drug allergies reviewed: Yes Home medication list reviewed: Yes (no changes) Allergy and home medication list: Allergies No Known Drug Allergies Allergy (Verified 10/04/21 12:24) Review of Systems Review of systems same as previous: Yes (no changes) Physical Exam Vital signs obtained and entered by: JOSEY JIMÉNEZ Blood Pressure: 125/80 (RESP 18, PULSE 60, RIGHT) Heart Rate: 60 O2 Saturation: 95 Height: 5 ft 4 in Impression and Plan 1. Obstructive Sleep Apnea-Hypopnea Syndrome, severe, with excellent treatment compliance and good apnea control. On CPAP therapy, the patient has better sleep quality and is more rested overall. Patient complaining of very dry mouth when using his CPAP. He states that this is not new with his new device. He uses a nasal cushion mask. I increased the humidity level to 5 from 4 on his device. He states he talked to his DME and they sent him some pictures of full face masks t o try but he was unsure. He is unsure he wants a large mask on his face. I had the patient fitted by Everardo, Lead biochemistry technologist, with a Dreamwear full face mask and he really liked the fit. He would like to try this mask. I wrote for a mask fitting to change to full face mask. Patient's apnea severity and rationale for treatment to reduce apnea, improve sleep quality and reduce cardiovascular and cerebrovascular events was reviewed. I also reviewed the benefit of consistent device use of CPAP for depression. * Continue auto CPAP pressure at 14-16 cmH2O * Update supplies * Mask fitting for Dreamwear full face mask * Notify me if snoring with mask or feeling that the pressure is too much or too little * Attempt to lose weight * Call this office if any problems using CPAP * Return for follow up in 1 year, or sooner if concerns arise Mask provided: Yes Counseling Topics: Spare mask, Weight loss health impact Visit Type: In Office Time Spent with Patient (minutes): 26 Provider Statement: I spent 100% of the Face to Face Visit with the patient with greater than 50% spent counseling the patient and coordination of care.
[2021-12-22 13:46] VITALS: BP 125/80
== END 2021-12-22 13:08 | disposition home or self-care (01) ==
LOC: SC 13:07
PROVIDERS: ATTEND Nurse Practitioner Family
DX: G47.33 Obstructive sleep apnea (adult) (pediatric) (principal)
CPT/HCPCS: 99213; G0463; 99212

== ENCOUNTER 2021-12-24 11:34 | Outpatient (CLI) | payer MEDICARE, OTHER ==
[2021-12-24 12:41] LABS: ALBUMIN 3.8 g/dL (3.2-5.5); ALBUMIN/GLOBULIN RATIO 1.7 (1.0-2.2); ALKALINE PHOSPHATASE 33 IU/L (42-121); ALT ALANINE AMINOTRANSFERASE 22 IU/L (10-60); AST ASPARTATE AMINOTRANSFERASE 24 IU/L (10-42); BILIRUBIN,TOTAL 0.9 mg/dL (0.2-1.0); BUN - BLOOD UREA NITROGEN 28 mg/dL (6-20); CALCIUM 9.5 mg/dL (8.5-10.3); CARBON DIOXIDE - CO2 26 mmol/L (21-32); CHLORIDE 107 mmol/L (101-111); CHOLESTEROL 232 mg/dL; GFR - MDRD 71 (>89); GLUCOSE 118 mg/dL (70-100); HDL CHOLESTEROL 77 mg/dL; LDL CHOLESTEROL,CALCULATED 141 mg/dL; LDL/HDL RATIO 1.8 (<3.6); POTASSIUM 3.8 mmol/L (3.5-5.0); SODIUM 141 mmol/L (135-145); TOTAL PROTEIN 6.1 g/dL (6.7-8.2); TRIGLYCERIDES 72 mg/dL; VLDL CHOLESTEROL 14 mg/dL
[2021-12-24 12:48] LABS: THYROID STIMULATING HORMONE 2.82 uIU/mL (0.34-5.60)
--- NOTE | 2021-12-24 15:39 | XRAY Report ---
PROCEDURE: Wrist 3 View BILAT INDICATIONS: OTHER SPECIFIED JOINT DISORDERS BILAT TECHNIQUE: 3 views of the wrist were acquired. COMPARISON: X-ray wrist 04/15/2021 FINDINGS: Bones: No fractures or dislocations. Subchondral cystic change at the triquetrum and first metacarpa l base are identified on the left, unchanged. Bilateral radiocarpal narrowing is present. Mild bilate ral first CMC degenerative narrowing is present. Soft tissues: No suspicious soft tissue calcifications. 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 Reviewed by: Mary Felipe MD on 12/24/2021 3:37 PM PDT Approved by: Mary Felipe MD on 12/24/2021 3:37 PM PDT Station ID: [id number]
[2021-12-25 03:09] LABS: HCV AB <0.1 s/co ratio (0.0-0.9)
== END 2021-12-24 11:35 | disposition home or self-care (01) ==
LOC: DI 11:34
PROVIDERS: ATTEND Nurse Practitioner Family
DX: M19.032 Primary osteoarthritis, left wrist (principal); M19.031 Primary osteoarthritis, right wrist; E03.9 Hypothyroidism, unspecified; N32.81 Overactive bladder; Z13.220 Encounter for screening for lipoid disorders; Z13.1 Encounter for screening for diabetes mellitus; Z11.59 Encounter for screening for other viral diseases
CPT/HCPCS: 36415; 80053; 80061; 83721; 84153; 84443; 86803

== ENCOUNTER 2022-02-03 08:00 | Outpatient (CLI) | payer MEDICARE, OTHER | END 2022-02-03 23:59 | disposition home or self-care (01) | LOC: LAB 08:00 | PROVIDERS: ATTEND Nurse Practitioner Family | DX: R97.20 Elevated prostate specific antigen [PSA] (principal) | CPT/HCPCS: 36415; 84153 ==

== ENCOUNTER 2022-12-09 12:32 | Outpatient (CLI) | payer MEDICARE, OTHER ==
--- NOTE | 2022-12-09 13:07 | Sleep Patient Instructions ---
Sleep Center Visit Summary - Patient Visit Information Reason for Visit: Annual visit for PAP therapy - Patient Instructions Additional Instructions: You will continue with CPAP therapy with pressure set at 14-16 cmH2O. A supply prescription will be updated with your DME. We encourage you to continue to try to lose weight. Please follow up with the sleep care office in 1 year. - Clinic Information Contact: [facility] [address] [place] [address] [email or web address] T: [phone]
--- NOTE | 2022-12-09 13:20 | SLEEP CARE CONSULTATION ---
Information from patient questionnaire entered by Tariq Beatty. I have reviewed and concur with the information entered by Tariq Beatty. This document represents the service I personally performed and the decisions made by me, Martha Perkins ARNP. History of Present Illness Service Date and Time: 12/09/2022 1232 Previous diagnosis: Severe, Obstructive Sleep Apnea-Hypopnea Syndrome AHI: 38.7 Reason for follow up: annual (LAST SEEN 11/2021) Equipment type: CPAP (RESMED 11; s/u 10/2021) Equipment obtained from: Other ([employer]; getting supplies as needed) Mask style: Full face Mask brand: Respironics (Dreamwear) Backup mask available: Yes (old mask) Prior sleep studies: Yes Year and Where: 2015 [facility] Type of Sleep Study: Polysomnography HPI additional information: GIORGIO RICE was diagnosed to have severe, AHI 38.7, obstructive sleep apnea-hypopnea syndrome and returned today for CPAP therapy annual follow-up. Sleep Study - Results Type of Sleep Study: Polysomnography Prior sleep studies: Yes Year and Where: 2015 [facility] CPAP Compliance Data - Data Reviewed with Patient Average duration of nightly device use: 8 HRS 0 MIN Compliance rate %: 99 (06/10/22-12/06/22; 179/180 days used) Current pressure setting (cmH2O): 14-16 Average residual AHI: 4.7 Central apnea: 1.7 Obstructive apnea: 0.7 Hypopnea: 0.3 Average large leak: 19.4 L/min Subjective Patient concerns: reports: dry mouth, nose, throat (occasionally). denies: aerophagia, mask discomfort, air blowing in eyes, mask leak noise, condensation in mask/hose, nasal congestion, epistaxis Observed to snore while using device: No Current pressure setting perceived as: comfortable On therapy, patient: reports: sleeping better, awakening more refreshed, being more awake and alert during the day, more rested overall. denies: drowsiness while driving Initial Boston Sleepiness Scale score: 11 (in 2015) Current Boston Sleepiness Scale score: 8 (12/09/22) Allergies and Home Medications Known drug allergies: No Drug allergies reviewed: Yes Home medication list reviewed: Yes (no changes) Allergy and home medication list: Allergies No Known Drug Allergies Allergy (Verified 12/08/22 14:56) Review of Systems Review of systems same as previous: Yes (no changes) Physical Exam Vital signs obtained and entered by: TARIQ Georges MA Blood Pressure: 108/68 (LEFT ARM) Cuff size: regular Heart Rate: 63 O2 Saturation: 96 Height: 5 ft 4 in Weight: 184 lb Body Mass Index: 31.6 BMI Classification: Obese Impression and Plan 1. Obstructive Sleep Apnea-Hypopnea Syndrome, severe, with good treatment compliance and good apnea control. On CPAP therapy, the patient has better sleep quality and is more rested overall. Patient has significant improvement of their sleep apnea and is satisfied with current CPAP therapy. He states he gets some dry mouth sometimes. I advised him to change his mask cushion more often because his average large leaks are high which can cause the dry mouth. He voiced understanding. Patient denies problems with nasal congestion, epistaxis, skin irritation or aerophagia. Patient's apnea severity and rationale for treatment to reduce apnea, improve sleep quality and reduce cardiovascular and cerebrovascular events was reviewed. I also reviewed the benefit of consistent device use of CPAP for depression. 2. Obesity, unspecified. Currently patients BMI is 31.6. Obesity increases the risk of apnea, CPAP pressure requirements and overall health risks especially cardiovascular and diabetes. Thus patient is advised to lose weight. * Continue auto CPAP pressure at 14-16 cmH2O * Update supply prescription * Notify me if snoring with mask or feeling that the pressure is too much or too little * Attempt to lose weight * Call this office if any problems using CPAP * Return for follow up in 1 year, or sooner if concerns arise Counseling Topics: Spare mask, Weight loss health impact Visit Type: In Office Time Spent with Patient (minutes): 27 Provider Statement: I spent 100% of the Face to Face Visit with the patient with greater than 50% spent counseling the patient and coordination of care.
[2022-12-09 13:27] VITALS: BP 108/68
== END 2022-12-09 12:33 | disposition home or self-care (01) ==
LOC: SC 12:32
PROVIDERS: ATTEND Nurse Practitioner Family
DX: G47.33 Obstructive sleep apnea (adult) (pediatric) (principal); E66.9 Obesity, unspecified; Z68.31 Body mass index [BMI] 31.0-31.9, adult
CPT/HCPCS: 99213; G0463; 99212

== ENCOUNTER 2023-04-13 13:04 | Outpatient (CLI) | payer MEDICARE, OTHER ==
--- NOTE | 2023-04-13 22:10 | XRAY Report ---
PROCEDURE: Chest 2 View X-Ray INDICATIONS: COUGH TECHNIQUE: 2 views of the chest were acquired. COMPARISON: 05/31/2017. FINDINGS: Surgical changes and devices: Patient is status post right shoulder arthroplasty. Lungs and pleura: No pleural effusions or pneumothorax. Subtle opacity at left lung base is seen. Ri ght lung is clear. Mediastinum: Mediastinal contours appear normal. Heart size is normal. Bones and chest wall: No suspicious bony lesions. Overlying soft tissues appear unremarkable. IMPRESSION: Finding is concerning for small left basilar infiltrate versus atelectasis. No pleural effusion or pn eumothorax. Reviewed by: Adam Ovalles MD on 04/13/2023 10:09 PM PST Approved by: Adam Ovalles MD on 04/13/2023 10:09 PM PST Station ID: [id number]
== END 2023-04-13 13:05 | disposition home or self-care (01) ==
LOC: DI 13:04
PROVIDERS: ATTEND Physician Assistant
DX: R05.9 Cough, unspecified (principal); R91.8 Other nonspecific abnormal finding of lung field

== ENCOUNTER 2024-01-24 13:46 | Outpatient (CLI) | payer MEDICARE, OTHER ==
--- NOTE | 2024-01-24 14:40 | Sleep Patient Instructions ---
Sleep Center Visit Summary - Patient Visit Information Reason for Visit: Annual follow-up for PAP therapy - Patient Instructions Additional Instructions: You will continue with CPAP therapy with pressure set at 14-16 cmH2O. A supply prescription will be updated with your DME supplier. We encourage you to continue to try to lose weight. Please follow up with the sleep care office in 1 year. - Clinic Information Contact: [facility] [address] [place] [address] [email or web address] T: [phone]
--- NOTE | 2024-01-24 14:44 | SLEEP CARE CONSULTATION ---
Information from patient questionnaire entered by Jayson Roca. I have reviewed and concur with the information entered by Jayson Roca. This document represents the service I personally performed and the decisions made by , Martha Perkins ARNP. History of Present Illness Service Date and Time: 01/24/2024 1346 Previous diagnosis: Severe, Obstructive Sleep Apnea-Hypopnea Syndrome AHI: 38.7 (2015) Reason for follow up: annual (Last seen 11/2022) Equipment type: CPAP (RESMED 11; s/u 10/2021) Equipment obtained from: Other ([employer]; getting supplies as needed) Mask style: Full face Mask brand: Respironics (Dreamwear) Backup mask available: Yes Last cushion change: yesterday Prior sleep studies: Yes Year and Where: 2015 [facility] Type of Sleep Study: Polysomnography HPI additional information: GIORGIO RICE was diagnosed to have severe, AHI 38.7, obstructive sleep apnea-hypopnea syndrome and returned today for CPAP therapy annual follow-up. Sleep Study - Results Type of Sleep Study: Polysomnography Prior sleep studies: Yes Year and Where: 2015 [facility] CPAP Compliance Data - Data Reviewed with Patient Average duration of nightly device use: 7 h 53 min Compliance rate %: 99 (07/27/23-01/22/24; 180/180 days used) Current pressure setting (cmH2O): 14-16 Average residual AHI: 4.1 Central apnea: 2.1 Obstructive apnea: 0.9 Hypopnea: 0.4 Average large leak: 2 L/min Subjective Patient concerns: reports: dry mouth, nose, throat. denies: aerophagia, mask discomfort, air blowing in eyes, mask leak noise, condensation in mask/hose, nasal congestion, epistaxis Observed to snore while using device: No Current pressure setting perceived as: comfortable On therapy, patient: reports: sleeping better, awakening more refreshed, being more awake and alert during the day, more rested overall. denies: drowsiness while driving Initial [place] Sleepiness Scale score: 11 (in 2016) Current [place] Sleepiness Scale score: 6 (01/24/24) Allergies and Home Medications Known drug allergies: No Drug allergies reviewed: Yes Home medication list reviewed: Yes (no changes) Allergy and home medication list: Allergies No Known Drug Allergies Allergy Review of Systems Review of systems same as previous: Yes (no changes) Physical Exam Vital signs obtained and entered by: Martha Moralez NP Blood Pressure: 144/75 Cuff size: long (right arm) Heart Rate: 58 O2 Saturation: 97 Height: 5 ft 4 in Weight: 168 lb 12.8 oz Weight change since last visit: 16 lb loss Body Mass Index: 29.0 BMI Classification: Overweight Impression and Plan 1. Obstructive Sleep Apnea-Hypopnea Syndrome, severe, with good treatment compliance and good apnea control. On CPAP therapy, the patient has better sleep quality and is more rested overall. He has significant improvement of his sleep apnea and is satisfied with current CPAP therapy. He does get some dry mouth and we discussed ways to keep his lips together because he may be oral venting. His humidifier is set at 5. Patient's apnea severity and rationale for treatment to reduce apnea, improve sleep quality and reduce cardiovascular and cerebrovascular events was reviewed. I also reviewed the benefit of consistent d evice use of CPAP for depression. 2. Overweight, unspecified. Currently patients BMI is 29. He has lost weight. Obesity increases the risk of apnea, CPAP pressure requirements and overall health risks especially cardiovascular and diabetes. Thus patient is advised to continue to try to lose weight. * Continue auto CPAP pressure at 14-16 cmH2O * Update supply prescription. * Notify me if snoring with mask or feeling that the pressure is too much or too little * Attempt to lose weight * Call this office if any problems using CPAP * Return for follow up in 12 months, or sooner if concerns arise Counseling Topics: Spare mask, Weight loss health impact Prescriptions: Device supplies Follow up with Sleep Care in: 1 year Visit Type: In Office Time Spent with Patient (minutes): 22 Provider Statement: I spent 100% of the Face to Face Visit with the patient with greater than 50% spent counseling the patient and coordination of care.
[2024-01-24 14:45] VITALS: BP 144/75; O2SAT 97
== END 2024-01-24 13:47 | disposition home or self-care (01) ==
LOC: SC 13:46
PROVIDERS: ATTEND Nurse Practitioner Family
DX: G47.33 Obstructive sleep apnea (adult) (pediatric) (principal); E66.3 Overweight; Z68.29 Body mass index [BMI] 29.0-29.9, adult
CPT/HCPCS: 99213; G0463; 99212